=== PATIENT | female | born 1995 | race Caucasian/White ===

== ENCOUNTER 2023-02-06 19:02 | Inpatient (IN) | payer MEDICAID, SELFPAY ==
[2023-02-06] VITALS (8 sets, daily range): BP systolic 143–158; BP diastolic 86–93; PULSE 69–84; RESP 16; TEMP 36.2–36.3; O2SAT 97–100; BMI 47.5
[2023-02-06 20:40] LABS: Absolute Lymphocyte Count 1.36 X10^3/uL (0.83-4.51); Absolute Neutrophil Count 5.4 X10^3/uL (2.0-7.7); Basophil# 0.02 X10^3/uL; Basophil% 0.3 % (0-1); Eosinophil# 0.07 X10^3/uL; Eosinophils% 0.9 % (0-5); Hematocrit 37.8 % (37-47); Hemoglobin 12.7 g/dL (12.0-15.0); Lymphocyte # 1.36 X10^3/ul (0.83-4.51); Mean Corp Hgb Conc 33.6 g/dL (32-36); Mean Corpuscular Hgb 28.9 pg (27.0-32.0); Mean Corpuscular Volume 85.9 fL (81-99); Monocyte# 0.64 X10^3/uL; Monocyte% 8.5 % (0-10); NRBC Flagged by Analyzer 0 % (0-5); Neutrophil # 5.41 X10^3/uL (2.7-7.7); Neutrophil % 71.8 % (47-70); Platelet Count 103 K/mm3 (150-450); RBC Distribution Width CV 14.2 % (11.6-14.6); RBC Distribution Width SD 43.8 fl (35.1-43.9); White Blood Count 7.5 K/mm3 (4.4-11.0)
[2023-02-06 20:43] LABS: POSITIVE COUNT NO; POSITIVE DIFFERENTIAL NO; POSITIVE MORPHOLOGY NO
[2023-02-06 21:21] LABS: Syphilis Antibodies Non-reactive
[2023-02-06 21:33] LABS: AST(SGOT) 12 U/L (15-37); Alanine Aminotransfer ALT/SGPT 15 U/L (13-56); Creatinine, Serum 0.58 mg/dL (0.55-1.02); EST Glomerular Filtration Rate 134 mL/min (>60); Est Glom Filt Rate - Afr Amer 162 mL/min (>60); Uric Acid 5.4 mg/dL (2.6-6.0)
--- NOTE | 2023-02-06 21:36 | PCM.HP.OB ---
HPI - General General Date of Admission: 02/06/23 Date of Service: 02/06/23 Chief Complaint: IOL HPI Narrative JAYCOB VÁSQUEZ, is a 27 F at 39w2d who presents for scheduled IOL for obesity in . She denies ctx, vb, lof. Good FM. She reports a herpes outbreak around 35 week gestation and she still feels a perianal bump there. PFSH PFSH Medical History (Updated 02/06/23 @ 21:[address] Hilda Castro, ) Anxiety Chlamydia infection affecting Depression Genital herpes affecting Home Medications acyclovir 400 mg tablet 400 mg PO TID 02/06/23 [History Last Taken 02/05/23] aspirin 81 mg tablet,delayed release 162 mg PO DAILY 02/06/23 [History Last Taken 02/05/23] escitalopram oxalate 10 mg tablet 10 mg PO DAILY anxiety and depression 02/06/23 [History Last Taken 02/06/23] famotidine 20 mg tablet mg PO .twice a day acid reflux 02/06/23 [History Last Taken 02/06/23] Allergy/AdvReac Type Severity Reaction Status Date / Time No Known Allergies Allergy Verified 02/06/23 19:43 Family History (Updated 02/06/23 @ 20:13 by Teresa Pinzon) Father Crohn disease Surgical History (Updated 02/06/23 @ 20:12 by Teresa Pinzon) History of surgery Social History Smoking Status: Former smoker History Elective abortions Hx Para 0 Spontaneous abortions Hx # Term Pregnancies Ectopic pregnancies Hx # Pregnancies Multiple births # of living children NST FHR Rate Baby A FHR Category:: Category I Vital Signs Vital Signs Vital Signs: 02/06/23 19:23 02/06/23 19:23 02/06/23 20:34 Temperature Temperature Source Pulse Rate 84 Blood Pressure 158/92 H 151/93 H BP Systolic 158 151 BP Diastolic 92 93 Pulse Ox 02/06/23 20:34 02/06/23 20:34 02/06/23 20:37 Temperature Temperature Source Pulse Rate 70 Blood Pressure 145/86 H BP Systolic 145 BP Diastolic 86 Pulse Ox 99 02/06/23 20:37 02/06/23 20:38 02/06/23 20:38 Temperature 97.2 F L Temperature Source Temporal Pulse Rate 69 Blood Pressure BP Systolic BP Diastolic Pulse Ox 02/06/23 21:14 02/06/23 21:14 Temperature Temperature Source Pulse Rate 75 Blood Pressure 145/92 H BP Systolic 145 BP Diastolic 92 Pulse Ox Weight Weight: 296 lb Body Mass Index (BMI) 47.5 Labs Labs Labs: Blood Type A POSITIVE Antibody Screen NEGATIVE Hct 37.8 % (37-47) Hgb 12.7 g/dL (12.0-15.0) Syphilis Total Ab Non-reactive Assessment & Plan (1) 39 weeks gestation of : PLAN: Patient presents for scheduled IOL for obesity in . She reports she still has a lesion noted from her herpes outbreak around 35 week gestation. Cailni anal lesion noted. Given this recommended a section. Discussed r/b/a to a section and patient desires to proceed. (2) Obesity affecting : (3) Gestational hypertension: PLAN: Mild range BP's. No symptoms of pre e. Pre e labs so far normal except plt's. Per chart review pt w/ h/o gestational thrombocytopenia. Awaiting p/c ratio. (4) Gestational thrombocytopenia: (5) History of chlamydia: (6) Herpes genitalis: PLAN: Lesion noted as above. (7) Unplanned : PLAN: Patient's father and step mother here for support. Social work consult . (8) History of depression: (9) Marijuana use: (10) Chlamydia infection: (11) with adoption planned: PLAN: Patient has been working with and an adoption agency. She states it will be a closed adoption. (12) Rubella non-immune status, antepartum:
[2023-02-06] MEDS: Acetaminophen 500 MG Tablet PO (21:44)
[2023-02-06] MEDS: Sodium Citrate/Citric Acid 30 ML UDC PO (21:45)
[2023-02-06] MEDS: Lactated Ringers 1,000 ML 50 ML IV (21:50)
[2023-02-06 23:18] LABS: Protein, Urine (Random) < 6.0 mg/dL (<11.9)
--- NOTE | 2023-02-06 23:39 | PCM.OPRPT ---
Problems Associated Problem List Diagnoses (1) Rubella non-immune status, antepartum: (2) with adoption planned: (3) Chlamydia infection: (4) Marijuana use: (5) History of depression: (6) Unplanned : (7) Herpes genitalis: (8) History of chlamydia: (9) Gestational thrombocytopenia: (10) Gestational hypertension: (11) Obesity affecting : (12) 39 weeks gestation of : Report of Operation Date of Procedure: 02/06/23 Pre-Operative Diagnosis: 39 week gestation, single IUP, obesity in the , active herpes outbreak, gHTN Post-Operative Diagnosis: As above Surgery/Procedure Performed:: PLTCS via pfannenstiel incision Description of Surgical Findings:: VFI in cephalic presentation. Loose nuchal cord x 1 around body. Apgars 9, 9. Clear fluid. Normal appearing placenta with 3VC. Normal uterus and bilateral adnexa. Surgeon: Hilda Castro tanning solution maker: Montserrat CHUN Type of Anesthesia: Spinal Special Medications: None Specimen's removed: Placenta Drains: Bui Estimated Blood Loss (mL): 1000 Fluids Replaced: 1000 mL Description of Procedure: Indications: She presents for a scheduled 39 week induction for obesity with herpes lesion on exam Procedure: The patient was taken to the operating room where spinal anesthesia was found to be adequate. She was prepped and draped in the dorsal supine position with a leftward tilt. A Pfannenstiel skin incision was made using a scalpel and this was carried down to the underlying layer of fascia. The fascia was incised in the midline. The fascia was extended laterally using Booth scissors. The fascia was minimally dissected off of the rectus muscles in a cephalad and caudad direction. The rectus muscles were in the midline. The peritoneum was entered bluntly with good visualization of the bladder. The peritoneal incision was extended bluntly with traction. A bladder blade was inserted. A low transverse incision was made on the uterus with a scalpel. The uterine incision was extended with traction both cephalad and caudad. Membranes were ruptured for clear fluid. The head of the infant was flexed and elevated and delivered through the hysterotomy. A loose nuchal cord x1 was reduced. The shoulders and body of the infant were delivered without any force or delay. A vigorous viable female infant was delivered atraumatically, and the cord was clamped and cut after slight delay and the was handed off to the waiting nursery staff. The placenta was removed with manual extraction. The uterus was cleared of all clot and debris. The uterus was exteriorized. The hysterotomy was closed with 1-0 Vicryl in a running locked fashion. A second imbricating layer using 1-0 Vicryl was performed. Several additional [id number] sutures using 1-0 Vicryl and 3-0 Vicryl were placed to achieve hemostasis of the hysterotomy. The uterus was placed back into the abdomen. Rere was placed over the hysterotomy and lower uterine segment. The rectus muscles were hemostatic. The fascia was closed with strata fix in a running fashion. The subcutaneous space was irrigated and made hemostatic with Bovie cautery. The subcutaneous space was reapproximated using 3-0 Vicryl and Rere was placed in the subcutaneous space. This skin was closed with 4-0 Monocryl subcuticular fashion. A silver dressing was placed. Instrument, sponge, needle counts were correct. The patient was taken to recovery room in stable condition. The portfolio assistant Katy CHUN was present for the entire procedure including draping the patient, delivery of the infant, closure. Grafts/Implants Used: None Procedure Start Time: 22:37 Procedure Stop Time: 23:36 Complications None Admit VTE Documentation VTE Present on Admission: No VTE Mechan Device Prophylaxis: SCD's
[2023-02-07] VITALS (14 sets, daily range): BP systolic 115–148; BP diastolic 70–91; PULSE 65–98; RESP 16–18; TEMP 36.1–36.8; O2SAT 96–99
[2023-02-07] MEDS: HYDROmorphone 1 MG/ML Syringe IV ×2 (01:20→05:46)
[2023-02-07] MEDS: Ketorolac 30 MG/ML Syringe IV ×4 (01:20→19:55)
[2023-02-07] MEDS: Oxytocin 15 Units/NS 250ml 15 UNITS/250 ML IV.SOLN 83 UNITS IV (01:29)
[2023-02-07] MEDS: Acetaminophen 500 MG Tablet 1000 MG PO ×3 (01:54→13:47)
[2023-02-07] MEDS: Lactated Ringers 1,000 ML 100 ML IV (03:05)
[2023-02-07] MEDS: 0.9% Saline Lock 10 ML Syringe IV ×2 (05:45→14:40)
[2023-02-07] MEDS: Acyclovir 200 MG Capsule 400 MG PO ×3 (05:45→23:29)
[2023-02-07] MEDS: Cefazolin 1 GM/50 ML BAG IV ×2 (05:47→14:40)
[2023-02-07 07:39] LABS: Hematocrit 30.9 % (37-47); Hemoglobin 10.1 g/dL (12.0-15.0); Mean Corp Hgb Conc 32.7 g/dL (32-36); Mean Corpuscular Hgb 28.6 pg (27.0-32.0); Mean Corpuscular Volume 87.5 fL (81-99); Mean Platelet Vol. 14.2 fl (6.2-12.0); POSITIVE COUNT YES; Platelet Count 73 K/mm3 (150-450); RBC Distribution Width CV 14.3 % (11.6-14.6); RBC Distribution Width SD 45.4 fl (35.1-43.9); Red Blood Count 3.53 M/mm3 (4.2-5.4); White Blood Count 9.6 K/mm3 (4.4-11.0)
[2023-02-07 07:46] LABS: Scan Indicated on CBC? Y/N YES- FLAGS NOTED
--- NOTE | 2023-02-07 08:04 | PN_ITS ---
Subjective Subjective patient seen at bedside, doing well. Patient reports good pain control. lochia mild. Dressing dry and intact. Objective Data Objective Data Vital Signs: Vital Signs Temp Pulse Resp BP Pulse Ox O2 Del Method 98.1 F 68 16 135/82 H 97 Room Air 02/07/23 07:49 02/07/23 07:49 02/07/23 07:49 02/07/23 07:49 02/07/23 07:49 02/07/23 07:49 Oxygen Delivery Method Room Air Weight: 134.263 kg Body Mass Index (BMI) 47.5 Intake & Output: Intake and Output for Last 24 Hours 02/05/23 02/06/23 02/07/23 23:59 23:59 23:59 Intake Total 415 / 415 Output Total 1000 / 1000 400 / 400 Balance -1000 / -1000 Lab / Micro Data 02/07/23 07:20 02/06/23 20:10 Labs: Laboratory Results - last 24 hr 02/06/23 20:10: WBC 7.5, RBC 4.40, Hgb 12.7, Hct 37.8, MCV 85.9, MCH 28.9, MCHC 33.6, RDW Std Deviation 43.8, RDW Coeff of Jayjay 14.2, Plt Count 103 L, MPV TNP, Immature Gran % (Auto) 0.500, Neut % (Auto) 71.8 H, Lymph % (Auto) 18.0 L, [place] % (Auto) 8.5, Eos % (Auto) 0.9, Baso % (Auto) 0.3, Absolute Neuts (auto) 5.4, Absolute Lymphs (auto) 1.36, Nucleated RBC % 0, Creatinine 0.58, Estim Creat Clear Calc 137.60, Est GFR (MDRD) Af Amer 162, Est GFR (MDRD) Non-Af 134, Uric Acid 5.4, AST 12 L, ALT 15, Syphilis Total Ab Non-reactive, Blood Type A POSITIVE, Antibody Screen NEGATIVE 02/06/23 22:25: U Random Total Protein < 6.0, Urine Creatinine 24.10, Protein/Creatinin Ratio TNP 02/07/23 07:20: WBC 9.6, RBC 3.53 L, Hgb 10.1 L, Hct 30.9 L, MCV 87.5, MCH 28.6, MCHC 32.7, RDW Std Deviation 45.4 H, RDW Coeff of Jayjay 14.3, Plt Count 73 L, MPV 14.2 H Physical Exam Const alert and oriented x3 General Appearance: cooperative HEENT normocephalic Neck General: normal visual inspection GI soft to palpation and non-distended GI Narrative: Fundus firm Extremity normal to inspection and no calf tenderness Skin no rashes or lesions noted Neuro oriented x3 and CN's II-XII intact bilaterally Psych mental status grossly normal Assessment & Plan Assessment/Plan (1) Rubella non-immune status, antepartum: (2) with adoption planned: (3) Herpes genitalis: (4) Gestational thrombocytopenia: (5) Gestational hypertension: (6) Obesity affecting : (7) Delivery by section: PLAN: Plan POD# 1 , Doing well Routine care pain mgmt monitor VS ambulation PLTS still decreasing- 73 today, will hold lovenox today- SCDs and ambulation. still planning adoption
[2023-02-07 08:20] LABS: ALB/GLOB Ratio 0.7 RATIO (0.9-2.4); AST(SGOT) 19 U/L (15-37); Alanine Aminotransfer ALT/SGPT 10 U/L (13-56); Alkaline Phosphatase 123 U/L (45-117); Anion Gap 5 (5-15); BUN 11 mg/dL (7-18); BUN/Creat Ratio 12.9 RATIO (10-20); Chloride 107 mmol/L (98-107); Creatinine, Serum 0.85 mg/dL (0.55-1.02); EST Glomerular Filtration Rate 85 mL/min (>60); Est Glom Filt Rate - Afr Amer 103 mL/min (>60); Estimated Creatinine Clearance 93.89 ml/min; Glucose 74 mg/dL (74-106); Potassium 4.1 mmol/L (3.5-5.1); Sodium Level 133 mmol/L (136-145)
[2023-02-07] MEDS: Escitalopram Oxalate 10 MG Tablet PO (11:07)
[2023-02-07] MEDS: Senna/Docusate Sodium 1 Tablet PO (11:08)
[2023-02-07] MEDS: oxyCODONE 5 MG Tablet PO ×2 (11:16→15:36)
--- NOTE | 2023-02-07 12:36 | CASEMGMT ---
Social Work Assessment Labor and Delivery Unit Patient Address:[address] [place] [address] Phone number: [phone] Date of Referral: 02/06/23 Time of Referral:? 2015 Referred By: Hilda Castro Date of Intervention: ??02/07/23 Time of Intervention:? 1010 Reason for Referral:? Mother has history of drug/ alcohol abuse. Mother also plans for adoption Sw completed chart review and acknowledges social work consult. Sw presented to bedside and introduced self to mother of baby (CUONG- Erum). Also present for a portion of assessment/ conversation was maternal grandpa and maternal step grandma. Sw completed psychosocial assessment with MOB. MOB reports that baby is the product of a one night stand with a man that she knew but was not in a relationship with. MOB states that father of baby's name is Larry but he has decided not to be involved at all. MOB states that she is connected with [facility] and has an adoptive family chosen. MOB states that at this time she is 99% planning on following through with the adoption. - MOB reports that she grew up in a dysfunctional home, and does not want a child of hers to have that type of childhood. MOB states that it is hard for her to care for herself (financially, mental health, etc. ) so she is aware that adoption is the best thing for the baby. History obtained from: medical records and MOB. ?? Household composition: MOB states that she currently has an apartment however her lease is up at the end of this month. MOB states that she has a friend who she may be able to move in with. Patient's parent/guardian status:? MOB states that she and FOB knew each other, however they slept together one time and baby is the outcome of that engagement. MOB states that when she found out that she was she told FOB, who at that time informed MOB that he did not want her to follow through with the . MOB reporst that having an goes against her morals and values and decided to go on this journey without the support of FOB. MOB states that initially FOB stated that he would be supportive of MOB if she decided to have the baby, however this is not what happened and she has not heard from him in quite some time. - MOB reports that NICKY has one other child who is almost 6 years old. Medical History: This is first and delivery for CUONG. CUONG received routine care during with [facility]. CUONG delivered baby at 39 weeks gestation via due to HSV outbreak. Baby girl (unnamed at this time, although CUONG would like baby's name to start with a K) was born on 02/06/23 weighing 7lb 7oz and her apgars were 9 and 9 at one and five minutes of life respectfully. Although CUONG is planning on following through with adoption she is baby and planning on continuing to provide milk for baby. Educational Status: MOB states that she graduated from high school and attended college for one year- did not graduate. 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 MOB states that she is planning on taking 4-6 weeks off for maternity leave, possibly longer now due to requiring to have baby via . Supplies:?Not discussed as at this time MOB is planning on following through with identified adoption plan. However sw was informed by maternal grandparents that if CUONG should chose to change her mind she does not have any baby supplies. Sw continue to assess need for baby supplies throughout duration of admission. Transportation:?? MOB states that she drives. No barriers to transportation at this time. Programs/Agencies Involved: ???[facility]- CUONG has been working with them throughout her to establish an adoption plan. CUONG has identified adoptive parents. CUONG plans on adoption being an open adoption. Children Services/Legal Issues:??No children services history, Children services will be notified of MOB substance use (THC) during . Behavioral Health Issues: ??Mental Health History:??MOB states that she is not sure what FOB mental health history looks like. MOB states that she has been diagnosed with anxiety and depression, she is prescribed Lexapro by Dr. Lila Malagon. CUONG reports that she has a lot of trauma from her childhood that she has not addressed and processed. MOB states thats he knows that trauma will prohibit her from being able to provide the life to baby that she deserves. Sw provided education on signs and symptoms of baby blues and post depression. Sw explained to MOB that she is at higher risk of experiencing one or both due to her mental health history and her current situation regarding the adoption. MOB expressed understanding. Sw provided MOB with list of [facility] mental health resources and encouraged MOB to get connected with counseling/ therapy. Sw offered to help MOB schedule intake. MOB said she would think about it and get back to sw. ? Substance Use History:??MOB disclosed that she used marijuana during the first trimester to help with nausea. MOB states that once her OBGYN prescribed zofran she stopped using marijuana. Family History:?MOB states that her mom is an alcoholic, no other substance use family history. MOB reports that her mom also has mental health history, but she does not know diagnoses at this time.? Drug Screens: No positive urine screens observed in chart review. MOB disclosed THC use early in . Family/Social Stressors:? MOB talked at length regarding her decision to follow through with adoption for her baby. MOB states that she lacks the capacity to care for herself, and knows that she would not be able to give baby the stability that she needs. MOB states that although she has a good relationship with her dad and step mom, they have established very clear boundaries with MOB and told her that she cannot move in with them with the baby. MOB states that although this was difficult for her to hear, she understands why they have the boundaries that they do and she is respectful of them. MOB also states that she does not want her daughter to grow up with parents who have a broken relationship, or lack there of. Support Systems: CUONG has strong supports found in her parents and extended family. MOB also states that her work family is also supportive. Depression/Shaken Baby/Safe Sleeping: Education and literature provided regarding signs and symptoms of baby blues and post depression. MOB strongly encouraged to get connected to community mental health supports. MOB appears to be receptive to this recommendation. Elaine disucssed with MOB the need to be willing to be vulnerable to work through some of her childhood trauma, especially given the current circumstances in MOB life. MOB was receptive to this recommendation. ASSESSMENT:? Safe Plan of Care for infant related to substance use:MOB states that she is no longer using marijuana.MOB planning on following through with adoption plan that she is established with [facility]. PLAN:? Sw will continue to be a support for MOB throughout hospitalization in Labor and Delivery. Elaine left voicemail for [facility] hand ornament maker, Amisha Ruby. Gentry Perez, VEST BACKER, TOLL COLLECTOR
[2023-02-08] MEDS: Ibuprofen 600 MG Tablet PO ×4 (01:33→21:06)
[2023-02-08] MEDS: Acetaminophen 500 MG Tablet 1000 MG PO ×4 (01:33→21:05)
[2023-02-08 01:43] VITALS: BP 141/80; PULSE 84; RESP 16; TEMP 36.6; O2SAT 98
[2023-02-08 06:10] LABS: Hematocrit 26.6 % (37-47); Hemoglobin 8.9 g/dL (12.0-15.0); Mean Corp Hgb Conc 33.5 g/dL (32-36); Mean Corpuscular Hgb 28.7 pg (27.0-32.0); Mean Corpuscular Volume 85.8 fL (81-99); POSITIVE COUNT YES; Platelet Count 90 K/mm3 (150-450); RBC Distribution Width CV 14.3 % (11.6-14.6); RBC Distribution Width SD 44.1 fl (35.1-43.9); White Blood Count 8.7 K/mm3 (4.4-11.0)
[2023-02-08 07:57] VITALS: BP 158/91; BP 174/100; PULSE 123; RESP 18; TEMP 35.8
[2023-02-08] MEDS: Acyclovir 200 MG Capsule 400 MG PO ×3 (08:23→22:31)
[2023-02-08] MEDS: oxyCODONE 5 MG Tablet PO ×2 (08:24→17:20)
--- NOTE | 2023-02-08 08:50 | PCM.PN.OB ---
Subjective Subjective Patient seen at bedside. Pain minimally controlled with Tylenol and Motrin. Will take Oxy- ir. Ambulating and voiding without difficulty. Denies headache, dizziness, SOB, or CP. infant. Planning on adoption and working with case management. Anticipate discharge tomorrow. Objective Data Objective Data Vital Signs: Vital Signs Temp Pulse Resp BP Pulse Ox O2 Del Method 96.5 F L 123 H 18 174/100 H 98 Room Air 02/08/23 07:57 02/08/23 07:57 02/08/23 07:57 02/08/23 07:57 02/08/23 01:43 02/08/23 01:43 Oxygen Delivery Method Room Air Weight: 296 lb Body Mass Index (BMI) 47.5 Intake & Output: Intake and Output for Last 24 Hours 02/06/23 02/07/23 02/08/23 23:59 23:59 23:59 Intake Total 995 / 995 Output Total 1000 / 1000 1000 / 1000 Balance -1000 / -1000 -5 / -5 Lab / Micro Data 02/08/23 05:55 02/07/23 07:10 Labs: Laboratory Results - last 24 hr 02/08/23 05:55: WBC 8.7, RBC 3.10 L, Hgb 8.9 L, Hct 26.6 L, MCV 85.8, MCH 28.7, MCHC 33.5, RDW Std Deviation 44.1 H, RDW Coeff of Jayjay 14.3, Plt Count 90 L, MPV 14.0 H ROS Eyes Eyes: Denies blurry vision, change in vision or spots in vision ENT HEENT: Denies dizziness or headache(s) Cardiovascular Cardiovascular: Denies abdominal pain, chest pain or dyspnea Respiratory/Chest Respiratory/Chest: Denies cough, dyspnea, shortness of breath at rest or shortness of breath with exertion Gastrointestinal Gastrointestinal: Denies abdominal pain, diarrhea or vomiting Genitourinary Genitourinary: Denies change in urinary stream, difficulty urinating or dysuria Musculoskeletal Musculoskeletal: Reports none Integumentary Integumentary: Denies rash Neurologic Neurologic: Denies dizziness, headache(s), memory loss or weakness Physical Exam Narrative Dressing is dry and intact Const alert and no apparent distress General Appearance: cooperative and comfortable Exam Limitations: no limitations HEENT normocephalic Eyes General Eye: normal appearance of both eyes Neck full ROM General: normal visual inspection Chest Chest: symmetrical chest wall rise Resp normal respiratory effort and normal air movement Effort and Inspection: symmetric chest movement Auscultation: clear to auscultation bilaterally Cardio regular rate and regular rhythm GI normal to inspection, nondistended, normoactive bowel sounds Back/Spine normal ROM Extremity full ROM and no calf tenderness General Extremity: normal exam except as noted Skin no rashes or lesions noted Neuro CN's II-XII intact bilaterally Psych mental status grossly normal Assessment & Plan (1) Delivery by section: (2) History of depression: (3) Herpes genitalis: (4) Gestational thrombocytopenia: (5) Gestational hypertension: (6) Obesity affecting : (7) with adoption planned: PLAN: Plan Blood pressures remain elevated- 140-150/80-90's Will start Labetalol 200 mg PO BID Ptl. increased to 90 Hgb. 8.9 Pain control support Emotional support Anticipate discharge tomorrow
[2023-02-08] MEDS: Labetalol 200 MG Tablet PO ×2 (10:17→22:30)
[2023-02-08] MEDS: Senna/Docusate Sodium 1 Tablet PO (10:17)
[2023-02-08] MEDS: Escitalopram Oxalate 10 MG Tablet PO (10:19)
[2023-02-08 12:05] VITALS: BP 146/86; PULSE 94; RESP 16; TEMP 35.9; O2SAT 98
[2023-02-08 16:23] VITALS: BP 142/80; PULSE 85; RESP 16; TEMP 36.5; O2SAT 96
[2023-02-08 20:00] VITALS: BP 151/87; PULSE 90; RESP 17; TEMP 36.3; O2SAT 99
[2023-02-09] VITALS (8 sets, daily range): BP systolic 117–171; BP diastolic 57–98; PULSE 70–112; RESP 16–18; TEMP 35.9–36.6; O2SAT 97–99
[2023-02-09] MEDS: Ibuprofen 600 MG Tablet PO ×3 (03:36→18:47)
[2023-02-09] MEDS: Acetaminophen 500 MG Tablet 1000 MG PO ×3 (03:38→18:47)
[2023-02-09] MEDS: Acyclovir 200 MG Capsule 400 MG PO ×2 (05:01→19:22)
[2023-02-09 05:16] LABS: Hematocrit 24.7 % (37-47); Hemoglobin 8.1 g/dL (12.0-15.0); Mean Corp Hgb Conc 32.8 g/dL (32-36); Mean Corpuscular Hgb 28.5 pg (27.0-32.0); Mean Platelet Vol. 13.6 fl (6.2-12.0); POSITIVE COUNT YES; Platelet Count 90 K/mm3 (150-450); RBC Distribution Width CV 14.5 % (11.6-14.6); Red Blood Count 2.84 M/mm3 (4.2-5.4); White Blood Count 6.9 K/mm3 (4.4-11.0)
--- NOTE | 2023-02-09 05:20 | NURSING ---
pt has communicated to this RN that she will be nursing while in the hospital and has decided not to provide milk to adoptive family after discharge due to putting her mental health first. pt states her mental health had suffered a great deal throughout her , especially towards the end, inevitably resulting in her decision to proceed with adoption. pt states this is the best decision for the due to growing up in a dysfunctional, inappropriate home and not wanting to put infant through that. pt states that her biological mother had inappropriate relationships with her biological uncle, further explaining that her mother would allow him and many others to use their home as a hotel, to come and go as they please while they abused drugs and alcohol in the home. which is one of the many reasons why she is, at this time, proceeding with her adoption plans.
--- NOTE | 2023-02-09 07:25 | PCM.PN.OB ---
Subjective Subjective Patient seen at bedside. Denies headache, vision changes, SOB, or CP. Ambulating and voiding without difficulty. Had BM last night. Continues to pass flatus. with minimal support. Pain controlled. Objective Data Objective Data Vital Signs: Vital Signs Temp Pulse Resp BP Pulse Ox O2 Del Method 98 F 70 17 147/92 H 97 Room Air 02/09/23 01:10 02/09/23 01:10 02/09/23 01:10 02/09/23 01:10 02/09/23 01:10 02/09/23 01:10 Oxygen Delivery Method Room Air Weight: 296 lb Body Mass Index (BMI) 47.5 Intake & Output: Intake and Output for Last 24 Hours 02/07/23 02/08/23 02/09/23 23:59 23:59 23:59 Intake Total 995 / 995 Output Total 1000 / 1000 Balance -5 / -5 Lab / Micro Data Attestation: I reviewed the patient's lab results. 02/09/23 04:55 02/07/23 07:10 Labs: Laboratory Results - last 24 hr 02/09/23 04:55: WBC 6.9, RBC 2.84 L, Hgb 8.1 L, Hct 24.7 L, MCV 87.0, MCH 28.5, MCHC 32.8, RDW Std Deviation 46.0 H, RDW Coeff of Jayjay 14.5, Plt Count 90 L, MPV 13.6 H ROS Eyes Eyes: Denies blurry vision, change in vision or spots in vision ENT HEENT: Denies dizziness or headache(s) Cardiovascular Cardiovascular: Denies abdominal pain, chest pain or dyspnea Respiratory/Chest Respiratory/Chest: Denies cough, dyspnea, shortness of breath at rest or shortness of breath with exertion Gastrointestinal Gastrointestinal: Denies abdominal pain, diarrhea or vomiting Genitourinary Genitourinary: Denies change in urinary stream, difficulty urinating or dysuria Musculoskeletal Musculoskeletal: Reports none Integumentary Integumentary: Denies rash Neurologic Neurologic: Denies dizziness, headache(s), memory loss or weakness Assessment & Plan (1) Delivery by section: (2) Rubella non-immune status, antepartum: (3) with adoption planned: (4) History of depression: (5) Gestational thrombocytopenia: (6) Gestational hypertension: PLAN: Plan POD 3 primary C/S Pain control hgb. 8.1 down from 8.9- asymptomatic Platelets remain at 90 BP 147/92, 151/87- Continue Labetalol 200 mg PO BID- ADD Procardia [address] Milton to evaluate later
[2023-02-09] MEDS: NIFEdipine 30 MG Tablet PO (08:04)
[2023-02-09] MEDS: Senna/Docusate Sodium 1 Tablet PO (10:47)
[2023-02-09] MEDS: Ferrous Sulfate 325 MG Tablet PO ×2 (12:50→18:48)
--- NOTE | 2023-02-09 12:59 | DCINST_ITS ---
Discharge Instructions Diet Discharge Diet: No restrictions Activity May resume sexual activity in: 6-8 weeks Lifting Restrictions: 25 Dressing / Incision Call your doctor if your incision/area has: Continuous Slow Oozing, Sudden Increased Bleeding, Increased Pain/ Swelling, Increased Redness, Foul Smelling Discharge and Swelling at the incision site Call your doctor if you observe: Fever of 101 or Higher, Inability to urinate, Using more than 1 pad per hour and Uncontrolled pain Additional Dressing/Incision Instructions:: remove dressing at 7 days post op- if it becomes saturated prior to that time you may remove it. Let soap and water run over incision sites and dab dry. keep incision clean and dry. Follow Up Care Please Follow Up With: Ana Lilia Mackey MD When: 1-2 weeks post of incision check and again at 6 weeks post . [phone] Test Results: Test results from this visit will be discussed in further detail at your follow- up appointment, if applicable. Discharge Plan Admission Admit Date/Time: 02/06/23 19:02 Attending Provider: Hilda Castro Primary Care Provider: Care Physician,[place] Primary Discharge Orders/Prescriptions Prescriptions: New nifedipine 30 mg Tablet Extended Release 24hr 30 mg PO DAILY Qty: 30 1RF labetalol 200 mg Tablet 200 mg PO BID 30 Days Qty: 60 1RF acetaminophen 500 mg Tablet 1,000 mg PO Q6H Qty: 0 0RF ferrous sulfate [FeroSul] 325 mg (65 mg iron) Tablet 325 mg PO 1200,1700 Qty: 0 0RF ibuprofen 600 mg Tablet 600 mg PO Q6H Qty: 0 0RF simethicone 80 mg Tablet,Chewable 80 mg PO PCHS PRN (Reason: Indigestion/stomach pain) Qty: 0 0RF Continued acyclovir 400 mg tablet 400 mg PO TID escitalopram oxalate 10 mg tablet 10 mg PO DAILY famotidine 20 mg tablet PO .twice a day Discontinued aspirin 81 mg tablet,delayed release (DR/EC) 162 mg PO DAILY Patient Comments: TAKE 2 TABLETS BY MOUTH ONCE DAILY Referrals / Follow Up: Care Physician,No Primary [Primary Care Provider] - Disposition Disposition (needs filled in before D/C Order can be placed): Home, Self Care
[2023-02-09] MEDS: Labetalol 200 MG Tablet PO ×2 (13:02→22:15)
--- NOTE | 2023-02-09 13:03 | PCM.DC.BLA ---
Discharge Summary Date of Admission: 02/06/23 Date of Discharge: 02/09/23 Discharge Plan Admission Admit Date/Time: 02/06/23 19:02 Attending Provider: Hilda Castro Primary Care Provider: Care Physician,[place] Primary Discharge Orders/Prescriptions Prescriptions: New nifedipine 30 mg Tablet Extended Release 24hr 30 mg PO DAILY Qty: 30 1RF labetalol 200 mg Tablet 200 mg PO BID 30 Days Qty: 60 1RF acetaminophen 500 mg Tablet 1,000 mg PO Q6H Qty: 0 0RF ferrous sulfate [FeroSul] 325 mg (65 mg iron) Tablet 325 mg PO 1200,1700 Qty: 0 0RF ibuprofen 600 mg Tablet 600 mg PO Q6H Qty: 0 0RF simethicone 80 mg Tablet,Chewable 80 mg PO PCHS PRN (Reason: Indigestion/stomach pain) Qty: 0 0RF Continued acyclovir 400 mg tablet 400 mg PO TID escitalopram oxalate 10 mg tablet 10 mg PO DAILY famotidine 20 mg tablet PO .twice a day Discontinued aspirin 81 mg tablet,delayed release (DR/EC) 162 mg PO DAILY Patient Comments: TAKE 2 TABLETS BY MOUTH ONCE DAILY Referrals / Follow Up: Care Physician,No Primary [Primary Care Provider] - Disposition Disposition (needs filled in before D/C Order can be placed): Home, Self Care
--- NOTE | 2023-02-09 13:14 | DS.PCM_ITS ---
Discharge Summary Date of Admission: 02/06/23 Date of Discharge: 02/09/23 Summary: Patient was admitted to [facility] on 02/06/2023 for medically indicated induction of labor due to obesity in . Upon arrival patient indicated that she still had an active herpes lesion. At this time decision was made to perform a primary section. Patient underwent a primary low transverse section form by Dr. Hilda Castro without complication. Throughout her hospital stay her blood pressures trended up and platelets trended down. Other preeclamptic work-up was negative. Patient diagnosed with gestational thrombocytopenia and gestational hypertension. Patient was discharged home on hospital day #3 with Procardia 30 XL daily and labetalol 200 mg twice daily. Patient will follow-up in the office on Saturday, February 11, 2023 for blood pressure check. Meaningful Use Info Meaningful Use Diagnoses (Choose all that apply): None applicable Discharge Plan Admission Admit Date/Time: 02/06/23 19:02 Attending Provider: Hilda Castro Primary Care Provider: Care Physician,[place] Primary Discharge Orders/Prescriptions Prescriptions: New nifedipine 30 mg Tablet Extended Release 24hr 30 mg PO DAILY Qty: 30 1RF labetalol 200 mg Tablet 200 mg PO BID 30 Days Qty: 60 1RF acetaminophen 500 mg Tablet 1,000 mg PO Q6H Qty: 0 0RF ferrous sulfate [FeroSul] 325 mg (65 mg iron) Tablet 325 mg PO 1200,1700 Qty: 0 0RF ibuprofen 600 mg Tablet 600 mg PO Q6H Qty: 0 0RF simethicone 80 mg Tablet,Chewable 80 mg PO PCHS PRN (Reason: Indigestion/stomach pain) Qty: 0 0RF Continued acyclovir 400 mg tablet 400 mg PO TID escitalopram oxalate 10 mg tablet 10 mg PO DAILY famotidine 20 mg tablet PO .twice a day Discontinued aspirin 81 mg tablet,delayed release (DR/EC) 162 mg PO DAILY Patient Comments: TAKE 2 TABLETS BY MOUTH ONCE DAILY Referrals / Follow Up: Care Physician,No Primary [Primary Care Provider] - Disposition Disposition (needs filled in before D/C Order can be placed): Home, Self Care
[2023-02-09] MEDS: oxyCODONE 5 MG Tablet PO ×2 (13:25→22:20)
--- NOTE | 2023-02-09 15:21 | CASEMGMT ---
Social Work Labor and Delivery Unit ? Summary:?Sw spoke to bedside nurse who states that mother of baby (MARY Danielson) has elevated blood pressure and will not be ready for discharge until tomorrow. Sw touched base with MOB and provided support. MOB states that today she has been emotional, preparing for what lays ahead tomorrow when she is discharged and the baby goes into cradle care. CUONG states that she has spoken to the disability case manager at [facility] and she will be present at the hospital tomorrow around 10:00. MOB stated that she feels as though she has started to grieve the loss of taking her baby home with her, but is still able to acknowledge that she knows that is what is in the baby's best interest. Sw talked to MOB about the grieving process and DABDA. MOB stated that she feels as though those are all emotions that she has experienced at some point during this process. - Elaine asked MOB if she has heard from alleged father of baby (NICKYRajeev Larry) and if she has an incling that he will be registering for paternity. MOB stated that she has not spoke to FOB and has not put anything on social media indicating that baby has been born. MOB stated that she is just fearful that he will register, but has not heard any confirming information that he is going to. - CUONG talked at length regarding her past traumas and how her mental health has been impacted by the relationship she has with her mother. Sw utilized active listening and provided support. Elaine asked MOB if she reviewed the counseling resources that sw left for her. CUONG said she just saw the handout this morning when she was rearranging the room. Sw offered to assist MOB in getting an intake appointment scheduled with a local counseling agency. MOB said she is interested in getting connected. Elaine explained different resources that each local agency provides. - CUONG acknowledged that she is holding back from the other relationships she has with other family members due to the traumatic relationship she has with her mom. Sw again strongly encouraged MOB to get and stay connected to community mental health support so she is able to start processing all of the trauma she is able to recognize she has experienced. . Elaine touched base with [facility] workerAmisha and offered to assist with whatever needs there may be tomorrow when MOB and baby are discharged from Labor and Delivery unit. ? Assessment:??MOB very insightful regarding her mental health history, trauma and how she holds people at arms length and does not follow through with recommendations/ resources. MOB was tearful at times throughout conversation, but remained open and receptive to sw support. MOB has family coming today and tomorrow to be with her while she is discharged and baby goes into cradle care with [facility] adoption agency. ? Intervention:?Support, advice, education and active listening utilized. ? Plan:??Sw will remain involved and available throughout remaining portion of MOB and baby admission. ? No other services requested or indicated. Gentry Perez, FLORICULTURE PROFESSOR, RETURNED GOODS INSPECTOR
[2023-02-09 18:39] LABS: Hemoglobin 8.4 g/dL (12.0-15.0); Mean Corp Hgb Conc 32.3 g/dL (32-36); Mean Corpuscular Hgb 28.3 pg (27.0-32.0); Mean Corpuscular Volume 87.5 fL (81-99); Platelet Count 120 K/mm3 (150-450); RBC Distribution Width CV 14.4 % (11.6-14.6); RBC Distribution Width SD 45.9 fl (35.1-43.9); Red Blood Count 2.97 M/mm3 (4.2-5.4)
[2023-02-09 18:51] LABS: Partial Thromboplast Time 31.6 Seconds (24.1-36.2)
[2023-02-09 18:57] LABS: AST(SGOT) 30 U/L (15-37); Alanine Aminotransfer ALT/SGPT 21 U/L (13-56); Creatinine, Serum 0.49 mg/dL (0.55-1.02); EST Glomerular Filtration Rate 162 mL/min (>60); Est Glom Filt Rate - Afr Amer 196 mL/min (>60); Estimated Creatinine Clearance 162.87 ml/min; Uric Acid 4.6 mg/dL (2.6-6.0)
[2023-02-09 19:08] LABS: LDH 189 U/L (84-246)
[2023-02-09] MEDS: Escitalopram Oxalate 10 MG Tablet PO (22:20)
[2023-02-10] MEDS: Acetaminophen 500 MG Tablet 1000 MG PO ×3 (00:40→12:09)
[2023-02-10] MEDS: Ibuprofen 600 MG Tablet PO ×3 (00:40→12:09)
[2023-02-10] MEDS: Acyclovir 200 MG Capsule 400 MG PO ×3 (00:40→14:41)
[2023-02-10 03:45] VITALS: BP 130/75; PULSE 85; RESP 16; TEMP 36.1
[2023-02-10] MEDS: Labetalol 200 MG Tablet PO ×2 (06:03→14:40)
[2023-02-10 08:00] VITALS: BP 150/98; PULSE 150; RESP 16; TEMP 36.3
[2023-02-10] MEDS: Senna/Docusate Sodium 1 Tablet PO (08:07)
[2023-02-10] MEDS: NIFEdipine 30 MG Tablet PO (08:08)
--- NOTE | 2023-02-10 09:04 | PCM.PN.OB ---
Subjective Subjective Patient states headache she had yesterday was resolved. Denies any lightheadedness, chest pain or shortness of breath. Denies any fevers or chills. Tolerating regular diet. Ambulating urinating without difficulty and has had a bowel movement. Objective Data Objective Data Vital Signs: Vital Signs Temp Pulse Resp BP Pulse Ox O2 Del Method 97.0 F L 85 16 130/75 H 98 Room Air 02/10/23 03:45 02/10/23 03:45 02/10/23 03:45 02/10/23 03:45 02/09/23 23:30 02/09/23 23:30 Oxygen Delivery Method Room Air Weight: 134.263 kg Body Mass Index (BMI) 47.5 Lab / Micro Data 02/09/23 18:25 02/09/23 18:25 Labs: Laboratory Results - last 24 hr 02/09/23 18:25: WBC 7.0, RBC 2.97 L, Hgb 8.4 L, Hct 26.0 L, MCV 87.5, MCH 28.3, MCHC 32.3, RDW Std Deviation 45.9 H, RDW Coeff of Jayjay 14.4, Plt Count 120 L, MPV 13.0 H, APTT 31.6, Creatinine 0.49 L, Estim Creat Clear Calc 162.87, Est GFR (MDRD) Af Amer 196, Est GFR (MDRD) Non-Af 162, Uric Acid 4.6, Total Bilirubin 0.30, AST 30, ALT 21, Lactate Dehydrogenase 189 Physical Exam Const alert General Appearance: cooperative GI GI Narrative: soft, moderate distention, fundus firm, appropriately tender. Abdominal bandage clean dry and intact Assessment & Plan (1) Delivery by section: PLAN: Postoperative day #4 status post section. Acute blood loss anemia consistent with blood loss of over 1000 cc at section consistent with postop hemorrhage. Patient is tolerating this well. Discharged home to continue vitamins and iron supplement. Elevated blood pressures. Stable on current regimen. Discharged home in stable regimen follow-up in the office tomorrow. Call if any questions or concerns. Set up for home blood pressure monitoring. Patient is comfortable with this. is doing well. Patient is getting up for adoption. Patient states she is doing well physically but struggling emotionally as expected. Has support measures in place.
[2023-02-10 09:10] VITALS: BP 142/88
[2023-02-10] MEDS: Ferrous Sulfate 325 MG Tablet PO (12:09)
[2023-02-10 15:00] VITALS: BP 137/85; PULSE 96; RESP 16; TEMP 36.6
--- NOTE | 2023-02-10 15:37 | NURSING ---
1400 Pt alternates between being very weepy/vomiting to smiling and saying she's ok. Lots of emotional support and encouragement given.
== END 2023-02-10 15:00 | disposition home or self-care (01) | DRG 540 ==
PROVIDERS: Advanced Practice Midwife; Obstetrics & Gynecology; Admitting Provider Obstetrics & Gynecology; Visit Provider Obstetrics & Gynecology
DX: O98.32 Other infections with a predominantly sexual mode of transmission complicating childbirth (principal); D69.6 Thrombocytopenia, unspecified; O99.324 Drug use complicating childbirth; E66.9 Obesity, unspecified; O99.214 Obesity complicating childbirth; F12.90 Cannabis use, unspecified, uncomplicated; A60.1 Herpesviral infection of perianal skin and rectum; O13.4 Gestational [pregnancy-induced] hypertension without significant proteinuria, complicating childbirth; O69.81X0 Labor and delivery complicated by cord around neck, without compression, not applicable or unspecified; Z37.0 Single live birth; Z79.82 Long term (current) use of aspirin; Z79.899 Other long term (current) drug therapy; Z3A.39 39 weeks gestation of pregnancy; Z87.891 Personal history of nicotine dependence
CPT/HCPCS: 59025; 59050; 80053; 82247; 82565; 82570; 83615; 84156; 84450; 84460; 84550; 85025; 85027; 85730; 86780; 86850; 86900; 86901; 99221; J7120; A4216; G0378